=== PATIENT | female | born 1955 | race Caucasian/White ===

== ENCOUNTER 2017-03-13 20:26 | Emergency (ER) | payer BC, OTHER ==
[~2017-03-13] VITALS: Ht 167.6 cm; Wt 84.3 kg
[~2017-03-13 20:26] MED LIST: MEDR4PAK3 PO; Z.0.NO CURRENT MEDS
[2017-03-13 20:32] VITALS: BP 182/99; PULSE 102; RESP 20; TEMP 98.2; O2SAT 96
[2017-03-13 21:30] VITALS: BP 161/79; PULSE 84; RESP 18; O2SAT 96
[2017-03-13] MEDS ORDERED: IBUP-232 PO (22:19)
--- NOTE | 2017-03-13 22:19 | PD ---
HPI Chief Complaint: Pain: Acute or Chronic Time Seen by Provider: 21:55 Travel History International Travel<30 days: No Contact w/Intl Traveler<30days: No Traveled to known affect area: No History of Present Illness HPI The patient is a 61-year-old female who complains of right breast pain for 3 months. She has had a mammogram which was negative. She has been evaluated by a breast surgeon and nothing was found. The pain follows all the subcostal nerve and goes to her back. She denies any rash or having had a rash in that area. She denies any fever, cough or shortness of breath. She has not smoked in 15 years. Her pain level to when I saw her and states it is 0 now. She states her pain can be as much as an 8/10. It is a hot/burning pain. She has already tried a chiropractor thinking this may be thoracic musculoskeletal pain. She had no relief with a chiropractor having seen him for about 2 months. PFSH Past Medical History Medical History: Denies Significant Hx Diminished Hearing: No Tetanus Vaccination: > 5 Years Influenza Vaccination: No ?: Not Menopausal: Yes Past Surgical History Appendectomy: Yes Tonsillectomy: Yes Social History Alcohol Use: No Tobacco Use: No Substance Use: No Allergies-Medications (Allergen,Severity, Reaction): Coded Allergies: No Known Allergies (Verified , 03/13/17) Reported Meds & Prescriptions Reported Meds & Active Scripts Active Review of Systems Except as stated in HPI: all other systems reviewed are Neg Physical Exam Narrative GENERAL: The patient is alert, oriented 3 in minimal apparent distress at this time. Her vital signs show blood pressure 182/99 with heart rate of 102 but are otherwise normal. SKIN: Focused skin assessment warm/dry. The right breast shows some minimal tenderness below the nipple on deep direct palpation, no masses are noted. There is no tenderness going along right costal margin associated with the right nipple all the way to the scapula. No tenderness or rash is noted in this area. HEAD: Atraumatic. Normocephalic. EYES: Pupils equal and round. No scleral icterus. No injection or drainage. ENT: No nasal bleeding or discharge. Mucous membranes pink and moist. NECK: Trachea midline. No JVD. CARDIOVASCULAR: Regular rate and rhythm. No murmur appreciated. RESPIRATORY: No accessory muscle use. Clear to auscultation. Breath sounds equal bilaterally. GASTROINTESTINAL: Abdomen soft, with tenderness to direct palpation along the attachments of the abdominal muscles on the right superior pubic ramus, nondistended. Hepatic and splenic margins not palpable. No guarding or rebound is present. MUSCULOSKELETAL: No obvious deformities. No clubbing. No cyanosis. No edema. NEUROLOGICAL: Awake and alert. No obvious cranial nerve deficits. Motor grossly within normal limits. Normal speech. PSYCHIATRIC: Appropriate mood and affect; insight and judgment normal. Data Data Last Documented VS Vital Signs Date Time Temp Pulse Resp B/P Pulse Ox O2 Delivery O2 Flow Rate FiO2 03/13/17 20:32 98.2 102 20 182/99 96 MDM Medical Decision Making Medical Screen Exam Complete: Yes Emergency Medical Condition: Yes Medical Record Reviewed: Yes Differential Diagnosis Herpes zosterunlikely, postherpetic neuralgiaunlikely, inflammation of subcostal muscles, thoracic radiculopathy, inflammation of muscle attachments right groin. Narrative Course The patient appears to have inflammation of the muscles on the right groin and subcostal muscles. I cannot reproduce any pain other than some minimal pain on the right breast below the nipple. Plan: The patient will take Motrin 600 mg 3 times daily for the anti- inflammatory effect. She should follow-up with her primary care physician. Alternatively, she can consult an boat master for this type pain. Diagnosis Primary Impression: Breast pain, right Additional Impression: Muscle inflammation Additional Instructions: As we discussed, take the Motrin regularly, 1 tablet 3 times daily. This will give you an anti-inflammatory effect which would be useful in reducing this pain. Also, consider an boat master for this type of pain. Otherwise, follow up with her primary care physician. Med/Other Pt SpecificInfo: Prescription(s) given Scripts Ibuprofen 600 Mg Lep329 Mg PO TID #44 TAB Ref 0 Prov:Jonnathan Nelson MD 03/13/17 Disposition: 01 DISCHARGE HOME Condition: Stable Jonnathan Nelson MD Mar 13, 2017 22:19
[2017-03-13] MEDS ORDERED: IBUPROFEN 600 MG TAB PO ONE (22:30)
[2017-03-13 22:56] VITALS: BP 167/91
== END 2017-03-13 22:59 | disposition home or self-care (01) ==
LOC: PHED 20:26
DX: N64.4 Mastodynia (principal); M60.9 Myositis, unspecified
CPT/HCPCS: 99283